=== PATIENT | female | born 1960 | race Caucasian/White ===

== ENCOUNTER 2019-01-25 09:45 | Day surgery (SDC) | payer BC, OTHER ==
[~2019-01-25 09:45] MED LIST: Lactated Ringers 1,000 ML IV SCH; Lidocaine 1%/Sod Bicarbonate in NS 8.4% 1 ML Syringe IDERM PRN; Sodium Chloride 0.9% 10 ML Syringe FLUSH PRN
[2019-01-25] MEDS ORDERED: Lidocaine 1% 4 ML ONE (09:46)
[2019-01-25] MEDS ORDERED: Midazolam 1 MG/ML 2 ML SDV ONE (09:46)
[2019-01-25] MEDS ORDERED: Ondansetron 4 MG/2 ML SDV ONE (09:46)
[2019-01-25] MEDS ORDERED: Propofol 200 MG/20 ML SDV ONE (09:46)
[2019-01-25] MEDS ORDERED: fentaNYL 250 MCG/5 ML SDV ONE (09:47)
[2019-01-25] MEDS ORDERED: Ketorolac 30 MG/ML SDV ONE (09:57)
--- NOTE | 2019-01-25 10:53 | PCM.PREANE ---
Preanesthetic Assessment - Procedure Proposed Procedure: D and C- ysteroscopy - Anesthesia/Transfusion/Family Hx Anesthesia History: Prior Anesthesia Without Reaction Family History of Anesthesia Reaction: No Transfusion History: No Prior Transfusion(s) - Review of Systems General: No Symptoms Pulmonary: Cough (woke up with a sore throat- coughing today) Cardiovascular: Dyspnea on Exertion Gastrointestinal: No Symptoms Neurological: No Symptoms Other: Reports: Diabetes (borderline), Throat Pain - Physical Assessment NPO Status Date: 01/24/19 NPO Status Time: 21:00 Vital Signs: 123/75 93 95% 99.4 16 Height: 5 ft 6 in Weight: 82 kg ASA Class: 2 Mental Status: Alert & Oriented x3 Airway Class: Mallampati = 1 Dentition: Reports: Normal Dentition, Implants Thyro-Mental Finger Breadths: 3 Mouth Opening Finger Breadths: 3 ROM/Head Extension: Full Lungs: Clear to Auscultation, Normal Respiratory Effort Cardiovascular: Regular Rate, Regular Rhythm - Lab Values: Laboratory Last Values WBC 11.16 K/mm3 (3.98-10.04) H 01/25/19 10:20 RBC 5.25 M/mm3 (3.98-5.22) H 01/25/19 10:20 Hgb 15.5 gm/dl (11.2-15.7) 01/25/19 10:20 Hct 46.7 % (34.1-44.9) H 01/25/19 10:20 MCV 89.0 fl (79.4-94.8) 01/25/19 10:20 MCH 29.5 pg (25.6-32.2) 01/25/19 10:20 MCHC 33.2 g/dl (32.2-35.5) 01/25/19 10:20 RDW Std Deviation 46.6 fL (36.4-46.3) H 01/25/19 10:20 Plt Count 286 K/mm3 (182-369) 01/25/19 10:20 MPV 10.3 fl (9.4-12.3) 01/25/19 10:20 Neut % (Auto) 72.0 % (34.0-71.1) H 01/25/19 10:20 Lymph % (Auto) 16.8 % (19.3-51.7) L 01/25/19 10:20 Burke % (Auto) 8.8 % (4.7-12.5) 01/25/19 10:20 Eos % (Auto) 1.5 (0.7-5.8) 01/25/19 10:20 Baso % (Auto) 0.6 % (0.1-1.2) 01/25/19 10:20 Neut # (Auto) 8.03 K/mm3 (1.56-6.13) H 01/25/19 10:20 Lymph # (Auto) 1.88 K/mm3 (1.18-3.74) 01/25/19 10:20 Burke # (Auto) 0.98 K/mm3 (0.24-0.36) H 01/25/19 10:20 Eos # (Auto) 0.17 K/mm3 (0.04-0.36) 01/25/19 10:20 Baso # (Auto) 0.07 K/mm3 (0.01-0.08) 01/25/19 10:20 - Allergies Allergies/Adverse Reactions: Allergies Allergy/AdvReac Type Severity Reaction Status Date / Time milk Allergy Airway Verified 01/23/19 13:25 Tightness simvastatin Allergy Body Aches Verified 01/23/19 13:25 Sulfa (Sulfonamide Allergy Headache Verified 01/23/19 13:25 Antibiotics) Seasonal allergies Allergy Sneezing Uncoded 01/23/19 13:25 - Blood Blood Available: No - Anesthesia Plan Beta Annamarie: Metoprolol Med Last Dose Date: 01/25/19 Med Last Dose Time: 06:00 - Acknowledgements Anesthesia Type Planned: General Anesthesia Pt an Appropriate Candidate for the Planned Anesthesia: Yes Alternatives and Risks of Anesthesia Discussed w Pt/Guardian: Yes Pt/Guardian Understands and Agrees with Anesthesia Plan: Yes PreAnesthesia Questionnaire HEENT History: Cardiovascular History: Reports: High Cholesterol, Hypertension, Other (See Below) Other Cardiovascular History: "racing heart" Respiratory History: Reports: None Gastrointestinal History: Reports: None Other OB/BYN History: abnormal mammogram, abnormal pap, post menopausal bleeding , cervical conization, cyst to breast Neurological History: Reports: Migraines, Vertigo Endocrine/Metabolic History: Reports: Diabetes, Type II, Obesity/BMI 30+ - Past Surgical History HEENT Surgical History: Reports: Laser Surgery Female Surgical History: Reports: Other (See Below) (cold cone) - SUBSTANCE USE Smoking Status *Q: Current Every Day Smoker Tobacco Use Within Last Twelve Months: Cigarettes Second Hand Smoke Exposure: Yes Days Per Week of Alcohol Use: 1 (rare) Recreational Drug Use History: No - HOME MEDS Home Medications: Home Meds Aspirin [Halfprin] 81 mg PO DAILY 01/23/19 [History] Fish Oil/[place]-3 Fatty Acids [Fish Oil 1,000 MG] 1 each PO DAILY 01/23/19 [ History] Meclizine HCl 12.5 mg PO ASDIRECTED PRN 01/23/19 [History] Metoprolol Tartrate 25 mg PO DAILY 01/23/19 [History] Niacin [Slo-Niacin] 250 mg PO DAILY 01/23/19 [History] Rosuvastatin Calcium 20 mg PO DAILY 01/23/19 [History] Ubidecarenone [Co Q-10] 10 mg PO DAILY 01/23/19 [History] hydroCHLOROthiazide [Hydrochlorothiazide] 12.5 mg PO DAILY 01/23/19 [History] - CURRENT (IN HOUSE) MEDS Current Meds: Current Medications Lactated Ringer's (Ringers, Lactated) 1,000 mls @ 125 mls/hr IV ASDIRECTED EDA Stop: 01/25/19 23:00 Last Admin: 01/25/19 10:20 Dose: 125 mls/hr Lidocaine/Sodium Bicarbonate (Buffered Lidocaine 1% In Ns 8.4%) 0.25 ml IDERM ONETIME PRN PRN Reason: Prior to IV Start Stop: 01/25/19 18:00 Last Admin: 01/25/19 10:20 Dose: 0.25 ml Sodium Chloride (Saline Flush) 10 ml FLUSH ASDIRECTED PRN PRN Reason: Keep Vein Open Stop: 01/25/19 18:00 Discontinued Medications Fentanyl (Sublimaze) Confirm Administered Dose 250 mcg .ROUTE .STK-MED ONE Stop: 01/25/19 09:48 Lidocaine HCl (Xylocaine-Mpf 1%) Confirm Administered Dose 4 mls @ as directed .ROUTE .STK-MED ONE Stop: 01/25/19 09:47 Ketorolac Tromethamine (Toradol) Confirm Administered Dose 30 mg .ROUTE .STK- MED ONE Stop: 01/25/19 09:58 Midazolam HCl (Versed 1 Mg/Ml) Confirm Administered Dose 2 mg .ROUTE .STK-MED ONE Stop: 01/25/19 09:47 Ondansetron HCl (Zofran) Confirm Administered Dose 4 mg .ROUTE .STK-MED ONE Stop: 01/25/19 09:47 Propofol (Diprivan 20 Ml) Confirm Administered Dose 200 mg .ROUTE .STK-MED ONE Stop: 01/25/19 09:47
[2019-01-25] MEDS ORDERED: ceFAZolin 1 GM Vial ONE (11:03)
[2019-01-25] MEDS ORDERED: fentaNYL 100 MCG/2 ML SDV IVPUSH PRN (12:42)
[2019-01-25] MEDS ORDERED: Ondansetron 4 MG/2 ML SDV IVPUSH PRN (12:42)
[2019-01-25] MEDS ORDERED: HYDROmorphone 0.5 MG/0.5 ML Syringe IVPUSH PRN (12:42)
[2019-01-25] MEDS ORDERED: Lactated Ringers 1,000 ML ONE (12:52)
[2019-01-25] MEDS ORDERED: Dexamethasone 4 MG/ML 5 ML MDV ONE (12:53)
--- NOTE | 2019-01-25 13:34 | PCM.OPNOTE ---
- General Post-Op/Procedure Note Date of Surgery/Procedure: 01/25/19 Operative Procedure(s): Hysteroscopy with D&C Pre Op Diagnosis: Postmenopausal bleeding and cervical stenosis Post-Op Diagnosis: Postmenopausal bleeding and cervical stenosis with multiple polypoid masses were removed at D&C from the endometrial cavity. (Pathology report pending) all tissue sent to pathology for tissue evaluation. Anesthesia Technique: MAC Primary Surgeon: Mack Yoo Anesthesia Provider: Skye Branham Real Estate Loan Processor: Rosa Elena Skelton (VIOLET) Reason Real Estate Loan Processor Was Necessary: Student observation or surgery Role of Real Estate Loan Processor: Student observation of surgery Fluid Replacement, Intraop: 1,000 Output, Urine Amount: 0 EBL in mLs: 5 Drain/Tube Comments:: None Complications: None Condition: Good Free Text/Narrative:: Patient was transported to operating room with SCDs in place. Placed under MAC Anesthesia in the low dorsal lithotomy position and prepared and draped in a sterile fashion. 2 g of Ancef given preoperatively. Examination under anesthesia revealed a slightly retroflexed uterus no adnexal masses palpated. Due to cervical stenosis lachrymal probes were required to cannulate the endocervical canal followed by gentle dilatation until dilatation was obtained to allow insertion of hysteroscope. Examination of the endometrial cavity revealed multiple polypoid masses. The curette was introduced and curettage and endometrial cavity was performed removing all of the visible polypoid masses noted on hysteroscopy. Reinspection of the hysteroscope confirm same. Sponge needle pack instrument count correct and procedure was completed. Patient transported postanesthesia care unit in satisfactory condition. No blood transfusions required not anticipated unless condition should change. All tissue sent to pathology for tissue evaluation. Images Image 001 shows polypoid masses in the endometrial cavity Image 002 shows additional polypoid mass and endometrial ca Image 003 shows additional polypoid masses at the apex of the endometrial cavity. Image 004 shows additional polypoid mass with some obscuration by blood. Image 005 shows post-curettage with no additional endometrial polypoid masses noted Image 006 shows endometrial cavity again with no additional polypoid masses Image 007 shows posterior surface of the endometrial cavity with removal of polypoid masses noted earlier.
--- NOTE | 2019-01-25 13:37 | PCM.POSTAN ---
POST ANESTHESIA ASSESSMENT - MENTAL STATUS Mental Status: Somnolent - VITAL SIGNS Vital Signs: Last Vital Signs Temp 98.2 F 01/25/19 13:24 Pulse 93 01/25/19 10:00 Resp 18 01/25/19 13:24 BP 137/77 01/25/19 13:24 Pulse Ox 96 01/25/19 13:24 - RESPIRATORY Respiratory Status: Respiratory Rate WNL, Airway Patent, O2 Saturation Stable, Supplemental Oxygen - CARDIOVASCULAR CV Status: Pulse Rate WNL, Blood Pressure Stable - GASTROINTESTINAL GI Status: No Symptoms - PAIN Pain Score: 0 - POST OP HYDRATION Hydration Status: Adequate & Stable
--- NOTE | 2019-01-25 14:25 | PCM48HPAN ---
Post Anesthesia Note - EVALUATION WITHIN 48HRS OF ANESTHETIC Vital Signs in Normal Range: Yes Patient Participated in Evaluation: Yes Respiratory Function Stable: Yes Airway Patent: Yes Cardiovascular Function Stable: Yes Hydration Status Stable: Yes Pain Control Satisfactory: Yes Nausea and Vomiting Control Satisfactory: Yes Mental Status Recovered: Yes (throat the same- afebrile) Vital Signs: Last Vital Signs Temp 98.8 F 01/25/19 14:10 Pulse 93 01/25/19 10:00 Resp 14 01/25/19 14:10 BP 113/65 01/25/19 14:10 Pulse Ox 94 L 01/25/19 14:10
== END 2019-01-25 15:15 | disposition home or self-care (01) ==
LOC: JD.SDS 09:45
PROVIDERS: ATTEND Obstetrics & Gynecology
DX: C54.1 Malignant neoplasm of endometrium (principal); N88.2 Stricture and stenosis of cervix uteri; I10 Essential (primary) hypertension; E11.9 Type 2 diabetes mellitus without complications; E78.00 Pure hypercholesterolemia, unspecified; F17.210 Nicotine dependence, cigarettes, uncomplicated; G43.909 Migraine, unspecified, not intractable, without status migrainosus; R94.5 Abnormal results of liver function studies; Z88.2 Allergy status to sulfonamides; Z91.011 Allergy to milk products; Z88.8 Allergy status to other drugs, medicaments and biological substances; Z79.82 Long term (current) use of aspirin; Z79.899 Other long term (current) drug therapy
CPT/HCPCS: 36415; 58558; 80053; 85025; 86850; 86900; 86901; 93005; J0690; J1100; J1885; J2001; J2250; J2405; J2704; J3010; J7120; 00952

== ENCOUNTER 2019-01-28 10:11 | Emergency (ER) | payer OTHER ==
[2019-01-28] MEDS ORDERED: Sodium Chloride 0.9% 1,000 ML IV ONE (13:18)
[2019-01-28] MEDS ORDERED: Sodium Chloride 0.9% 10 ML Syringe FLUSH PRN (13:18)
--- NOTE | 2019-01-28 13:20 | EDM.PDOC ---
ED HPI GENERAL MEDICAL PROBLEM - General Chief Complaint: General Stated Complaint: SORE THROAT AND COUGH SINCE MONDAY Time Seen by Provider: 01/28/19 11:58 Source of Information: Reports: Patient History Limitations: Reports: No Limitations - Related Data Allergies Allergy/AdvReac Type Severity Reaction Status Date / Time milk Allergy Airway Verified 01/28/19 11:00 Tightness simvastatin Allergy Body Aches Verified 01/28/19 11:00 Sulfa (Sulfonamide Allergy Headache Verified 01/28/19 11:00 Antibiotics) Seasonal allergies Allergy Sneezing Uncoded 01/28/19 11:00 Home Meds: Home Meds Aspirin [Halfprin] 81 mg PO DAILY 01/23/19 [History] Fish Oil/[place]-3 Fatty Acids [Fish Oil 1,000 MG] 1 each PO DAILY 01/23/19 [ History] Meclizine HCl 12.5 mg PO ASDIRECTED PRN 01/23/19 [History] Metoprolol Tartrate 25 mg PO DAILY 01/23/19 [History] Niacin [Slo-Niacin] 250 mg PO DAILY 01/23/19 [History] Rosuvastatin Calcium 20 mg PO DAILY 01/23/19 [History] Ubidecarenone [Co Q-10] 10 mg PO DAILY 01/23/19 [History] hydroCHLOROthiazide [Hydrochlorothiazide] 12.5 mg PO DAILY 01/23/19 [History] Aspirin 650 mg PO Q6H PRN #100 tab 01/25/19 [Rx] Ibuprofen [Motrin] 600 mg PO Q6H PRN #50 tab 01/25/19 [Rx] Benzonatate [Tessalon Perle] 100 mg PO TID PRN #21 capsule 01/28/19 [Rx] levoFLOXacin [Levaquin] 750 mg PO DAILY #7 tab 01/28/19 [Rx] Past Medical History HEENT History: Reports: Impaired Vision Cardiovascular History: Reports: High Cholesterol, Hypertension, Other (See Below) Other Cardiovascular History: "racing heart" Respiratory History: Reports: None Gastrointestinal History: Reports: None Other FUNCTIONAL TESTER History: abnormal mammogram, abnormal pap, post menopausal bleeding , cervical conization, cyst to breast Neurological History: Reports: Migraines, Vertigo Endocrine/Metabolic History: Reports: Diabetes, Type II, Obesity/BMI 30+ Oncologic (Cancer) History: Reports: Cervix - Infectious Disease History Infectious Disease History: Reports: Chicken Pox - Past Surgical History HEENT Surgical History: Reports: Laser Surgery, Oral Surgery Female Surgical History: Reports: D&C, Other (See Below) Other Female Surgeries/Procedures: uterine biopsy Social & Family History - Family History Family Medical History: Noncontributory - Tobacco Use Smoking Status *Q: Current Every Day Smoker Years of Tobacco use: 40 Packs/Tins Daily: 1 - Caffeine Use Caffeine Use: Reports: Coffee, Soda - Recreational Drug Use Recreational Drug Use: No ED ROS GENERAL - Review of Systems Review Of Systems: See Below Constitutional: Reports: Chills, Malaise, Weakness, Fatigue, Decreased Appetite HEENT: Reports: No Symptoms Respiratory: Reports: Cough. Denies: Shortness of Breath, Wheezing, Pleuritic Chest Pain, Sputum Cardiovascular: Denies: Chest Pain, Dyspnea on Exertion, Lightheadedness, Orthopnea, Palpitations, PND GI/Abdominal: Reports: No Symptoms Musculoskeletal: Reports: No Symptoms Neurological: Reports: No Symptoms ED EXAM, GENERAL - Physical Exam Exam: See Below Exam Limited By: No Limitations General Appearance: Alert, WD/WN, No Apparent Distress Eye Exam: Bilateral Eye: Normal Inspection Ears: Hearing Grossly Normal Nose: Normal Inspection Throat/Mouth: Normal Inspection, Normal Oropharynx, Normal Voice, No Airway Compromise Neck: Normal Inspection, Supple, Non-Tender, Full Range of Motion. No: Lymphadenopathy (L), Lymphadenopathy (R) Respiratory/Chest: No Respiratory Distress, Lungs Clear, Normal Breath Sounds, No Accessory Muscle Use, Chest Non-Tender Cardiovascular: Normal Peripheral Pulses, Regular Rate, Rhythm, No Murmur Peripheral Pulses: 2+: Radial (L), Radial (R) GI/Abdominal: Normal Bowel Sounds, Soft, Non-Tender, No Organomegaly, No Distention Back Exam: Normal Inspection, Full Range of Motion. No: CVA Tenderness (L), CVA Tenderness (R) Extremities: Normal Inspection, Normal Range of Motion, Non-Tender, No Pedal Edema Neurological: Alert, Oriented, CN II-XII Intact, Normal Cognition, No Motor/ Sensory Deficits Psychiatric: Normal Affect, Normal Mood Skin Exam: Warm, Dry, Intact, Normal Color Course - Vital Signs Last Recorded V/S: Last Vital Signs Temp 98.7 F 01/28/19 16:45 Pulse 94 01/28/19 16:45 Resp 20 01/28/19 16:45 BP 128/72 01/28/19 16:45 Pulse Ox 92 L 01/28/19 16:45 - Orders/Labs/Meds Orders: Active Orders 24 hr Category Date Time Status Peripheral IV Care [RC] . DIRECTED Care 01/28/19 13:18 Active CULTURE STREP A CONFIRMATION [RM] Stat Lab 01/28/19 11:43 Results Rapid Strep w/culture conf [STREP SCRN A RAPID W CULT Lab 01/28/19 11:43 Results CONF] [RM] Stat Peripheral IV Insertion Adult [OM.PC] Routine Oth 01/28/19 13:18 Ordered Labs: Laboratory Tests 01/28/19 01/28/19 Range/Units 12:49 13:58 WBC 12.22 H (3.98-10.04) K/mm3 RBC 5.25 H (3.98-5.22) M/mm3 Hgb 15.5 (11.2-15.7) gm/dl Hct 46.3 H (34.1-44.9) % MCV 88.2 (79.4-94.8) fl MCH 29.5 (25.6-32.2) pg MCHC 33.5 (32.2-35.5) g/dl RDW Std Deviation 44.3 (36.4-46.3) fL Plt Count 260 (182-369) K/mm3 MPV 10.1 (9.4-12.3) fl Neutrophils % (Manual) 84 H (40-60) % Band Neutrophils % 0 (0-10) % Lymphocytes % (Manual) 11 L (20-40) % Atypical Lymphs % 0 % Monocytes % (Manual) 3 (2-10) % Eosinophils % (Manual) 2 (0.7-5.8) % Basophils % (Manual) 0 L (0.1-1.2) Platelet Estimate Adequate Plt Morphology Comment RBC Morph Comment Normal Sodium 136 (136-145) mEq/L Potassium 3.6 (3.5-5.1) mEq/L Chloride 100 (98-107) mEq/L Carbon Dioxide 24 (21-32) mEq/L Anion Gap 15.6 H (5-15) BUN 8 (7-18) mg/dL Creatinine 0.7 (0.55-1.02) mg/dL Est Cr Clr Drug Dosing 81.01 mL/min Estimated GFR (MDRD) > 60 (>60) mL/min BUN/Creatinine Ratio 11.4 L (14-18) Glucose 135 H (74-106) mg/dL Calcium 8.7 (8.5-10.1) mg/dL Total Bilirubin 2.1 H (0.2-1.0) mg/dL AST 15 (15-37) U/L ALT 31 (14-59) U/L Alkaline Phosphatase 112 (46-116) U/L C-Reactive Protein 10.0 H* (<1.0) mg/dL Total Protein 7.0 (6.4-8.2) g/dl Albumin 3.0 L (3.4-5.0) g/dl Globulin 4.0 gm/dL Albumin/Globulin Ratio 0.8 L (1-2) Meds: Medications Discontinued Medications Generic Name Dose Route Start Last Admin Trade Name Freq PRN Reason Stop Dose Admin Acetaminophen 975 mg 01/28/19 14:52 01/28/19 15:10 Tylenol PO 01/28/19 14:53 975 mg NOW ONE Administration Benzonatate 200 mg 01/28/19 15:51 01/28/19 16:02 Tessalon Perles PO 01/28/19 15:52 200 mg ONETIME ONE Administration Guaifenesin 600 mg 01/28/19 15:51 01/28/19 16:02 Mucinex PO 01/28/19 15:52 600 mg ONETIME ONE Administration Sodium Chloride 1,000 mls @ 999 mls/hr 01/28/19 13:18 01/28/19 14:17 Normal Saline IV 01/28/19 14:18 999 mls/hr ONETIME ONE Administration Sodium Chloride 500 mls @ 500 mls/hr 01/28/19 15:54 01/28/19 16:02 Normal Saline IV 01/28/19 16:53 500 mls/hr .BOLUS ONE Administration Levofloxacin 750 mg 01/28/19 14:51 01/28/19 15:11 Levaquin PO 01/28/19 14:52 750 mg ONETIME ONE Administration Sodium Chloride 10 ml 01/28/19 13:18 01/28/19 14:17 Saline Flush FLUSH 10 ml ASDIRECTED PRN Administration Keep Vein Open - Re-Assessments/Exams Free Text/Narrative Re-Assessment/Exam: On initial exam patients heart rate 115, temp recheck 98F, respiratory 19, blood pressure 122/96 with O2 sats at 95%. IV with normal saline 1 L bolus ordered. She'll labs and studies will include: CBC, chem 14, CRP, rapid strep screen, and chest x-ray. Chest x-ray indicated increased lung markings which are most likely chronic. Faint density within the right upper chest which may represent small area pneumonia. I ordered Levaquin 750 mg IV. Labs reviewed. Slight elevation in wbc with no left shift. CRP elevated at 10. Bilirubin elevated 2.1. In error no blood cultures or lactic acid ordered. 1553 Reassessment HR 98 at rest. O2 sats 92% on room air. BP normotensive. Patient states she is feeling much better I will provide another 500 mls lf NS. Verbal order placed to nursing staff for Tessalon Perles and also Mucinex. 01/28/19 16:41 IV fluids have completely ran him. Heart rates in the 90s. She is ready to be discharged home. Return precautions were discussed with the patient. She had no further questions or concerns and agreed with plan. Discharge instructions as documented. Departure - Departure Time of Disposition: 14:52 Disposition: Home, Self-Care 01 Condition: Good Clinical Impression: Pneumonia Qualifiers: Pneumonia type: due to unspecified organism Laterality: right Lung location: middle lobe of lung Qualified Code(s): J18.1 - Lobar pneumonia, unspecified organism - Discharge Information Prescriptions: Benzonatate [Tessalon Perle] 100 mg PO TID PRN #21 capsule PRN Reason: Cough levoFLOXacin [Levaquin] 750 mg PO DAILY #7 tab Instructions: Community-Acquired Pneumonia, Adult, Fnny-[id number] Referrals: Nohemy Padron PA-C [Primary Care Provider] - Forms: ED Department Discharge, ED Return to Work/School Form Additional Instructions: Take the Levaquin and Tessalon Perles as prescribed. Push the fluids. Utilize Mucinex 600 mg one tab twice a day. Follow-up with PCP in the next 3-5 days if symptoms are not improving. Return to the ED if you develop any new or worsening symptoms. - My Orders Last 24 Hours: My Active Orders 01/28/19 11:43 CULTURE STREP A CONFIRMATION [RM] Stat Rapid Strep w/culture conf [STREP SCRN A RAPID W CULT CONF] [RM] Stat 01/28/19 13:18 Peripheral IV Care [RC] . DIRECTED Peripheral IV Insertion Adult [OM.PC] Routine - Assessment/Plan Last 24 Hours: My Active Orders 01/28/19 11:43 CULTURE STREP A CONFIRMATION [RM] Stat Rapid Strep w/culture conf [STREP SCRN A RAPID W CULT CONF] [RM] Stat 01/28/19 13:18 Peripheral IV Care [RC] . DIRECTED Peripheral IV Insertion Adult [OM.PC] Routine
--- NOTE | 2019-01-28 14:48 | CR ---
Chest: Two views of the chest were obtained. Comparison: No prior chest imaging. Faint densities are noted within the right upper chest. Lung markings are mildly increased which are likely chronic. Heart size and mediastinum are normal. Bony structures are within normal limits. Impression: 1. Increased lung markings which are most likely chronic. 2. Faint density within the right upper chest which may represent small area of pneumonia. Diagnostic code #3
[2019-01-28] MEDS ORDERED: Levofloxacin 750 MG Tab PO ONE (14:51)
[2019-01-28] MEDS ORDERED: Acetaminophen 325 MG Tab PO ONE (14:52)
[2019-01-28] MEDS ORDERED: Benzonatate 100 MG Cap PO ONE (15:51)
[2019-01-28] MEDS ORDERED: guaiFENesin 600 MG Tab.ER PO ONE (15:51)
[2019-01-28] MEDS ORDERED: Sodium Chloride 0.9% 500 ML IV ONE (15:54)
== END 2019-01-28 16:55 | disposition home or self-care (01) ==
LOC: JD.ED 10:11
DX: J18.1 Lobar pneumonia, unspecified organism (principal); I10 Essential (primary) hypertension; E66.9 Obesity, unspecified; F17.210 Nicotine dependence, cigarettes, uncomplicated; Z88.8 Allergy status to other drugs, medicaments and biological substances; Z88.2 Allergy status to sulfonamides; Z91.011 Allergy to milk products; Z91.09 Other allergy status, other than to drugs and biological substances; Z79.899 Other long term (current) drug therapy; Z79.82 Long term (current) use of aspirin; Z68.29 Body mass index [BMI] 29.0-29.9, adult
CPT/HCPCS: 36415; 71046; 80053; 85007; 85027; 86140; 87081; 87430; 96360; 96361; 99283; A9270; J7040

== ENCOUNTER 2019-11-26 23:49 | Emergency (ER) | payer OTHER ==
[2019-11-27] MEDS ORDERED: Sodium Chloride 0.9% 10 ML Syringe FLUSH PRN (00:34)
[2019-11-27] MEDS ORDERED: Clindamycin Phosphate 600 MG in Sodium Chloride 0.9% 100 ML IV ONE (00:34)
--- NOTE | 2019-11-27 01:27 | EDM.PDOC ---
ED HPI GENERAL MEDICAL PROBLEM - General Chief Complaint: General Stated Complaint: TOOTH PAIN Time Seen by Provider: 11/27/19 00:18 Source of Information: Reports: Patient, RN Notes Reviewed - History of Present Illness INITIAL COMMENTS - FREE TEXT/NARRATIVE: Has been having discomfort L upper molar worsening the past few days. Swelling L face started this past evening. No fever or chills. tooth is cavitated. Has dental appt. scheduled for next week. face Pain Score (Numeric/FACES): 6 - Related Data Allergies Allergy/AdvReac Type Severity Reaction Status Date / Time milk Allergy Airway Verified 01/28/19 11:00 Tightness simvastatin Allergy Body Aches Verified 01/28/19 11:00 Sulfa (Sulfonamide Allergy Headache Verified 01/28/19 11:00 Antibiotics) Seasonal allergies Allergy Sneezing Uncoded 01/28/19 11:00 Home Meds: Home Meds Aspirin [Halfprin] 81 mg PO DAILY 01/23/19 [History] Fish Oil/[place]-3 Fatty Acids [Fish Oil 1,000 MG] 1 each PO DAILY 01/23/19 [History] Meclizine HCl 12.5 mg PO ASDIRECTED PRN 01/23/19 [History] Metoprolol Tartrate 25 mg PO DAILY 01/23/19 [History] Niacin [Slo-Niacin] 250 mg PO DAILY 01/23/19 [History] Rosuvastatin Calcium 20 mg PO DAILY 01/23/19 [History] Ubidecarenone [Co Q-10] 10 mg PO DAILY 01/23/19 [History] hydroCHLOROthiazide [Hydrochlorothiazide] 12.5 mg PO DAILY 01/23/19 [History] Aspirin 650 mg PO Q6H PRN #100 tab 01/25/19 [Rx] Ibuprofen [Motrin] 600 mg PO Q6H PRN #50 tab 01/25/19 [Rx] Benzonatate [Tessalon Perle] 100 mg PO TID PRN #21 capsule 01/28/19 [Rx] levoFLOXacin [Levaquin] 750 mg PO DAILY #7 tab 01/28/19 [Rx] clindamycin HCL [Clindamycin HCl] 300 mg PO TID #20 capsule 11/27/19 [Rx] Past Medical History HEENT History: Reports: Impaired Vision Cardiovascular History: Reports: High Cholesterol, Hypertension, Other (See Below) Other Cardiovascular History: "racing heart" Respiratory History: Reports: None Gastrointestinal History: Reports: None 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: abnormal 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, abnormal pap, post menopausal bleeding, cervical conization, cyst to breast Neurological History: Reports: Migraines, Vertigo Endocrine/Metabolic History: Reports: Diabetes, Type II, Obesity/BMI 30+ Oncologic (Cancer) History: Reports: Cervix - Infectious Disease History Infectious Disease History: Reports: Chicken Pox - Past Surgical History HEENT Surgical History: Reports: Laser Surgery, Oral Surgery Female Surgical History: Reports: D&C, Other (See Below) Other Female Surgeries/Procedures: uterine biopsy Social & Family History - Family History Family Medical History: Noncontributory - Tobacco Use Smoking Status *Q: Never Smoker - Caffeine Use Caffeine Use: Reports: Coffee, Soda - Recreational Drug Use Recreational Drug Use: No ED ROS GENERAL - Review of Systems Review Of Systems: See Below Constitutional: Denies: Fever, Chills HEENT: Reports: Dental Pain. Denies: Throat Pain Respiratory: Reports: No Symptoms Cardiovascular: Denies: Chest Pain GI/Abdominal: Denies: Abdominal Pain, Nausea, Vomiting Musculoskeletal: Denies: Neck Pain Skin: Reports: No Symptoms Neurological: Reports: No Symptoms ED EXAM, GENERAL - Physical Exam Exam: See Below General Appearance: Alert, No Apparent Distress Throat/Mouth: Other (L upper molar cavitated, no visible gum swelling or drainage) Head: Facial Swelling (mild L mid face) Neck: Supple. No: Lymphadenopathy (L), Lymphadenopathy (R) Respiratory/Chest: No Respiratory Distress Neurological: Alert, Oriented, No Motor/Sensory Deficits Skin Exam: Warm, Dry, Normal Color, No Rash. No: Erythema Course - Vital Signs Last Recorded V/S: Last Vital Signs Temp 98.1 F 11/27/19 00:08 Pulse 79 11/27/19 00:08 Resp 20 11/27/19 00:08 BP 143/74 H 11/27/19 00:08 Pulse Ox 97 11/27/19 00:08 - Orders/Labs/Meds Orders: Active Orders 24 hr Category Date Time Status Peripheral IV Care [RC] . DIRECTED Care 11/27/19 00:34 Active Sodium Chloride 0.9% [Saline Flush] Med 11/27/19 00:34 Active 10 ml FLUSH ASDIRECTED PRN Peripheral IV Insertion Adult [OM.PC] Stat Oth 11/27/19 00:34 Ordered Medication Orders Sodium Chloride (Saline Flush) 10 ml FLUSH ASDIRECTED PRN PRN Reason: Keep Vein Open Last Admin: 11/27/19 00:49 Dose: 10 ml Documented by: BEATRIZ Meds: Medications Generic Name Dose Route Start Last Admin Trade Name Freq PRN Reason Stop Dose Admin Sodium Chloride 10 ml 11/27/19 00:34 11/27/19 00:49 Saline Flush FLUSH 10 ml ASDIRECTED PRN Administration Keep Vein Open Discontinued Medications Generic Name Dose Route Start Last Admin Trade Name Freq PRN Reason Stop Dose Admin Clindamycin Phosphate 600 mg/ 104 mls @ 200 mls/hr 11/27/19 00:34 11/27/19 00:48 Sodium Chloride IV 11/27/19 01:05 200 mls/hr ONETIME ONE Administration Departure - Departure Time of Disposition: 01:24 Disposition: Home, Self-Care 01 Condition: Fair Clinical Impression: Pain, dental, Dental infection - Discharge Information Prescriptions: clindamycin HCL [Clindamycin HCl] 300 mg PO TID #20 capsule Instructions: Dental Abscess, [id number] Referrals: Nohemy Padron PA-C [Primary Care Provider] - Forms: ED Department Discharge Additional Instructions: You have been clindamycin 600 mg IV while here in the ED. Prescription has been sent [facility] to continue at a dose of 300 mg 3 times daily. Alternate tylenol and ibuprofen or aleve as needed for discomfort. See dentist next week as planned. Return to ED as needed. Sepsis Event Note (ED) - Evaluation Sepsis Screening Result: No Definite Risk - Focused Exam Vital Signs: Vital Signs Temp Pulse Resp BP Pulse Ox 11/27/19 00:08 98.1 F 79 20 143/74 H 97 - My Orders Last 24 Hours: My Active Orders 11/27/19 00:34 Peripheral IV Care [RC] . DIRECTED Sodium Chloride 0.9% [Saline Flush] 10 ml FLUSH ASDIRECTED PRN Peripheral IV Insertion Adult [OM.PC] Stat - Assessment/Plan Last 24 Hours: My Active Orders 11/27/19 00:34 Peripheral IV Care [RC] . DIRECTED Sodium Chloride 0.9% [Saline Flush] 10 ml FLUSH ASDIRECTED PRN Peripheral IV Insertion Adult [OM.PC] Stat
== END 2019-11-27 01:35 | disposition home or self-care (01) ==
LOC: JD.ED 23:49
DX: K04.7 Periapical abscess without sinus (principal); K02.9 Dental caries, unspecified; E78.00 Pure hypercholesterolemia, unspecified; I10 Essential (primary) hypertension; E11.9 Type 2 diabetes mellitus without complications; E66.9 Obesity, unspecified; Z68.29 Body mass index [BMI] 29.0-29.9, adult; Z79.82 Long term (current) use of aspirin; Z79.899 Other long term (current) drug therapy
CPT/HCPCS: 96365; 99282; J3490; J7050; 99283

== ENCOUNTER 2023-06-01 08:28 | Emergency (ER) | payer OTHER ==
[2023-06-01 08:56] LABS: BASOPHILS PERCENT AUTO 0.3 % (0.0-1.0); EOSINOPHILS PERCENT AUTO 0.5 % (0.0-6.0); HEMATOCRIT 44.6 % (37.0-47.0); HEMOGLOBIN 14.6 gm/dl (12.0-16.0); IMMATURE GRAN ABSOLUTE AUTO 0.04 K/mm3 (0.00-0.05); IMMATURE GRAN PERCENT AUTO 0.7 % (0.0-0.4); LYMPHOCYTES ABSOLUTE AUTO 1.3 K/mm3 (1.0-4.8); LYMPHOCYTES PERCENT AUTO 22.5 % (24.0-44.0); MEAN CORPUSCULAR HEMOGLOBIN 29.4 pg (28.0-32.0); MEAN CORPUSCULAR HGB CONC 32.7 g/dl (32.0-36.0); MEAN CORPUSCULAR VOLUME 89.9 fl (83.0-99.0); MEAN PLATELET VOLUME 10.3 fl (9.4-12.3); MONOCYTES ABSOLUTE AUTO 0.8 K/mm3 (0.0-0.8); MONOCYTES PERCENT AUTO 14.1 % (0.0-8.0); NEUTROPHILS ABSOLUTE AUTO 3.7 K/mm3 (1.8-7.7); NEUTROPHILS PERCENT AUTO 61.9 % (41.0-71.0); PLATELET COUNT,PLT 204 K/mm3 (150-400); RED BLOOD CELL COUNT 4.96 M/mm3 (4.10-5.30)
[2023-06-01 09:25] LABS: A/G RATIO 0.8 (1-2); ALBUMIN 3.4 g/dl (3.4-5.0); ANION GAP 19.4 (5-15); BILIRUBIN TOTAL 0.5 mg/dL (0.2-1.0); CREATININE 0.7 mg/dL (0.55-1.02); EST CRCL DRUG DOSING (CG) 76.01 mL/min; PROTEIN TOTAL,TP 7.5 g/dl (6.4-8.2)
[2023-06-01 09:35] LABS: POTASSIUM,K 3.4 mEq/L (3.5-5.1)
[2023-06-01 10:36] LABS: APPEARANCE,URINE SLT CLOUDY (Clear); BILIRUBIN,URINE NEGATIVE (Negative); COLOR,URINE DARK YELLOW (Yellow); GLUCOSE,URINE NEGATIVE (Negative); KETONES,URINE 2+ (Negative); LEUKOCYTE ESTERASE,URINE NEGATIVE (Negative); NITRITE,URINE NEGATIVE (Negative); OCCULT BLOOD,URINE 3+ (Negative); PROTEIN,URINE 1+ (Negative)
[2023-06-01 11:13] LABS: BACTERIA,URINE FEW /hpf (FEW); EPITHELIAL CELLS,URINE 0-5 /hpf (0-5); MUCUS,URINE MANY /hpf (FEW); RBC,URINE 50-75 /hpf (0-5); WBC,URINE 0-5 /hpf (0-5)
== END 2023-06-01 13:03 | disposition home or self-care (01) ==
LOC: JD.ED 08:28
DX: R07.9 Chest pain, unspecified (principal); R31.9 Hematuria, unspecified; I10 Essential (primary) hypertension; E78.00 Pure hypercholesterolemia, unspecified; E11.9 Type 2 diabetes mellitus without complications; Z79.82 Long term (current) use of aspirin; Z91.011 Allergy to milk products; Z88.2 Allergy status to sulfonamides; Z91.048 Other nonmedicinal substance allergy status; Z88.8 Allergy status to other drugs, medicaments and biological substances
CPT/HCPCS: 36415; 71045; 71045-26; 80053; 81001; 83880; 84484; 85025; 85379; 87086; 93005; 93010; 99282; 99285